=== PATIENT | male | born 1970 | race Caucasian/White ===

== ENCOUNTER 2019-04-24 14:54 | Outpatient (RCR) | payer OTHER ==
[~2019-04-24] VITALS: Ht 177.8 cm; Wt 93.9 kg
[~2019-04-24 14:54] MED LIST: CHOL10005 PO; EMPA10TA PO; FLAS1EAC2 TD; FLAS1KIT2; GLYB1TAB47 PO; ROSU10TA PO; TIZA-128 PO
--- NOTE | 2019-04-26 14:44 | Medical Nutrition Therapy ---
Nutrition Anthropometrics Height (Inches): 70 Weight (Pounds): 207 BMI: 29.7 Alan Nutrition Score: Alan Nutrition Risk Score: Dietary Referral Nutrition Risk Factors: Nutrition Risk Comment: Nutritional Education Nutrition Education Topic: Diabetic Nutrition Learning Readiness: Interested Teaching Methods: Discussion, Handout Response to Teaching: Return demonstration, Verbalize understanding Teaching Recipient: Patient Nutrition Counseling: Pt goal was to review diabetic diet principles. 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 Pt reported he was drinking 1/5 of liquor every night, however, he has cut down to ~2 glasses of wine per night. Pt past medical historysignificant for DM2, hyperlipidemia, and ETOH abuse. Pt taking metformin,glypuride, and jardiance. Pt reported most recent AIC of 10%. Assessed pt knowledge of CHO foods, he knew all of the foodgroups that contained CHO. Pt was familar with diabetic exchange list and knew most of the servings sizes. Pt wanted to focus on plate method for controlling CHO, reviewed plate method. Provided handouts on glycemic index and diabetic exchange list. Reviewed 24 hr recall, pt eating 1-2 CHO per meal with 2 non CHO containing snacks. Encouraged pt to call with any questions. UJAN TOM Apr 26, 2019 14:44
== END 2019-05-29 ==
LOC: DIET 14:54
PROVIDERS: ATTEND Internal Medicine
DX: E11.9 Type 2 diabetes mellitus without complications (principal); E78.5 Hyperlipidemia, unspecified; Z71.3 Dietary counseling and surveillance; Z68.29 Body mass index [BMI] 29.0-29.9, adult; Z79.84 Long term (current) use of oral hypoglycemic drugs
CPT/HCPCS: 97802